=== PATIENT | female | born 1995 | race Caucasian/White ===

== ENCOUNTER → 2018-12-04 | Outpatient (CLI) | payer BC, OTHER ==
--- NOTE | 2018-12-04 12:22 | EST ---
EXERCISE STRESS DATE OF SERVICE: 12/04/2018 AGE: 23 SEX: Female HT: 5'3" WT: 168 pounds PROTOCOL: Ryan STAGE: III DURATION OF EXERCISE: 10 minutes 27 seconds HEART RATE REST: 100 BLOOD PRESSURE REST: 130/89 MAXIMUM HEART RATE ACHIEVED: 200 MAXIMUM BLOOD PRESSURE: 176/81 85% MPHR: 169 100% MPHR: 199 METS: 12.1 INDICATIONS: Chest pain. CLINICAL INFORMATION: Baseline rhythm is sinus mechanism, rate of 100, normal axis, intervals, normal electrocardiogram. Baseline blood pressure 130/89 mmHg. Patient exercised on Ryan protocol for 10 minutes 27 seconds reaching peak rate 200 beats per minute which is equal to 100% maximum predicted heart rate. Peak blood pressure 176/81 mmHg. Test was terminated secondary to fatigue. There was no chest pain. Electrocardiograph monitoring revealed no evidence of diagnostic ischemic ST deviation. No arrhythmia was noted. CONCLUSION: 1. Average exercise tolerance with no arrhythmia. 2. Normal stress test with no evidence of stress induced ischemia. MMODL / IJN: [id number] /
== END | disposition home or self-care (01) ==
LOC: RADNMMAIN 10:38
PROVIDERS: ATTEND Family Medicine
DX: R07.9 Chest pain, unspecified (principal)
CPT/HCPCS: 93017

== ENCOUNTER 2020-07-02 22:19 | Emergency (ER) | payer BC, OTHER ==
--- NOTE | 2020-07-02 22:51 | ED ---
Female Urogenital HPI - General Chief complaint: Vaginal Bleeding Stated complaint: Vaginal Bleeding 8 weeks preg Time Seen by Provider: 07/02/20 22:43 Source: patient, RN notes reviewed Mode of arrival: ambulatory Limitations: no limitations - History of Present Illness Initial comments: Patient is a 25-year-old female who states she is approximately 8 weeks . She noted that she woke up around 10 PM this evening to get a peripheral work when she noticed that she was having some bleeding and noticed blood in the toilet and on wiping. She feels it was a moderate amount of blood so she decided come emergency room to get evaluated. She denied any abdominal cramping pain prior to or during the bleeding episode. She states she has not been to see her [facility] yet as she is scheduled to go on the fifth. She was in no apparent distress or pain while sitting up in bed during the exam interview. She denied any chest pain shortness of breath headache vomiting diarrhea constipation fever fatigue chills vaginal discharge or follow odor. - Related Data Allergies Allergy/AdvReac Type Severity Reaction Status Date / Time No Known Allergies Allergy Verified 07/02/20 22:24 Review of Systems ROS Statement: Those systems with pertinent positive or pertinent negative responses have been documented in the HPI. ROS Other: All systems not noted in ROS Statement are negative. Past Medical History Past Medical History: No Reported History History of Any Multi-Drug Resistant Organisms: None Reported Past Surgical History: No Surgical Hx Reported Past Psychological History: No Psychological Hx Reported Smoking Status: Never smoker Past Alcohol Use History: None Reported Past Drug Use History: None Reported General Exam Limitations: no limitations General appearance: alert, in no apparent distress Head exam: Present: atraumatic, normocephalic, normal inspection Eye exam: Present: normal appearance, PERRL, EOMI. Absent: scleral icterus, conjunctival injection, periorbital swelling Neck exam: Present: normal inspection. Absent: tenderness, meningismus, lymphadenopathy Respiratory exam: Present: normal lung sounds bilaterally. Absent: respiratory distress, wheezes, rales, rhonchi, stridor Cardiovascular Exam: Present: regular rate, normal rhythm, normal heart sounds. Absent: systolic murmur, diastolic murmur, rubs, gallop, clicks GI/Abdominal exam: Present: soft, normal bowel sounds. Absent: distended, t enderness, guarding, rebound, rigid Back exam: Present: normal inspection Neurological exam: Present: alert, oriented X3, CN II-XII intact Psychiatric exam: Present: normal affect, normal mood Skin exam: Present: warm, dry, intact, normal color. Absent: rash Course Vital Signs 07/02/20 22:20 Temperature 97.6 F Pulse Rate 123 H Respiratory 20 Rate Blood Pressure 156/86 O2 Sat by Pulse 100 Oximetry Medical Decision Making - Medical Decision Making 25-year-old female approximately 8 weeks with vaginal bleeding. Labs, transvaginal ultrasound ordered. HCG 108,731 ultrasound shows 8 week 3 day gestation with minimal subcoracoid fluid, possible minimal hemorrhage. Patient is A positive. Case discussed with giancarlo Baker with follow-up to [facility]. - Lab Data Lab Results 07/02/20 07/02/20 07/02/20 Range/Units 23:10 23:10 23:39 HCG, Qual Detected HCG, Quant 414875.0 mIU/mL Urine HCG, Qual Detected (Not Detectd) - Radiology Data Radiology results: report reviewed, image reviewed ultrasound: Ultrasound gestational age is 8 weeks and 3 days tiny subchorionic fluid collection could be minimal hemorrhage. Disposition Clinical Impression: Dysfunctional uterine bleeding, Threatened Disposition: HOME SELF-CARE Condition: Stable Instructions (If sedation given, give patient instructions): Dysmenorrhea (ED) Additional Instructions: Please return to the Emergency Department if symptoms worsen or any other concerns. Follow-up with [facility] as planned. Take it easy over the next several days. If increase in bleeding or abdominal pain occurs please return to emergency room. Is patient prescribed a controlled substance at d/c from ED?: No Referrals: Devon Lancaster DO [Primary Care Provider] - 1-2 days Time of Disposition: 01:52
--- NOTE | 2020-07-02 23:51 | US ---
EXAMINATION TYPE: Transabdominal DATE OF EXAM: 07/02/2020 11:40 PM COMPARISON: NONE CLINICAL HISTORY: Vaginal bleeding, 8 weeks .. EXAM PERFORMED: Transabdominal (TA) EXAM MEASUREMENTS: GESTATIONAL AGE / DATING Physician Established: Not yet established Dates by LMP: (9 weeks/6 days) EDC: 01-29-21 Dates by First Scan: No previous this is first Dates by Current Scan for: ( 8 weeks/3 days) EDC: 02-08-21 MATERNAL ANATOMY Uterus: 9.4 x 6.0 x 7.0cm Right Ovary: 2.5x 1.9 x 2.0cm Left Ovary: 2.5 x 1.3 x 1.3cm Post CDS / Adnexa: wnl Presence of free fluid: no Subchorionic bleed measuring 1.0 x 0.5 x 0.9cm GESTATION / SURVEY CRL: 1.9 (8 weeks/3 days) Yolk Sac (normal less than 6mm): 2mm Heart Rate: 178 bpm Rhythm: Normal IUP: Viable IUP Date of LMP: 04-24-20 Beta HcG (if available): Not available at this time IMPRESSION: The ultrasound gestational age is 8 weeks and 3 days. Tiny subchorionic fluid collection could be min imal hemorrhage..
[2020-07-03 02:12] VITALS: BP 112/79; PULSE 110; RESP 18; TEMP 97.5
== END 2020-07-03 02:07 | disposition home or self-care (01) ==
LOC: EC 22:19
DX: O20.0 Threatened abortion (principal); Z3A.08 8 weeks gestation of pregnancy
CPT/HCPCS: 36415; 76801; 81025; 84702; 84703; 86900; 86901; 99284

== ENCOUNTER → 2021-07-09 | Outpatient (CLI) | payer BC, OTHER ==
--- NOTE | 2021-07-09 14:20 | XR ---
EXAMINATION TYPE: XR Hip LT and AP Pelvis DATE OF EXAM: 07/09/2021 COMPARISON: NONE HISTORY: Pain TECHNIQUE: A single AP view of the pelvis is obtained. Two views of the left hip are obtained. FINDINGS: There is sclerosis involving the left SI joint. Joint space of the hip preserved. Osseous structures intact. No acute fracture. Calcifications in the pelvis are nonspecific. Could be vascular . There is mild sclerosis of the right SI joint. No erosive changes. IMPRESSION: 1. Findings are suggestive of symmetric bilateral sacroiliitis. 2. Nonspecific left hemipelvic calcifications. If concern for ureteral stone correlate with noncontra st CT as clinically warranted.
== END | disposition home or self-care (01) ==
LOC: RADXRMAIN 13:56
PROVIDERS: ATTEND Family Medicine
DX: M25.552 Pain in left hip (principal); M89.8X8 Other specified disorders of bone, other site
CPT/HCPCS: 73502

== ENCOUNTER 2024-03-19 09:39 | Emergency (ER) | payer BC, OTHER ==
[2024-03-19 09:46] VITALS: RESP 18; TEMP 97.9
--- NOTE | 2024-03-19 10:08 | ED ---
Abdominal Pain HPI - General Chief Complaint: Abdominal Pain Stated Complaint: Blood in stool Time Seen by Provider: 03/19/24 09:47 Source: patient, RN notes reviewed Mode of arrival: ambulatory Limitations: no limitations - History of Present Illness Initial Comments: This is a 28-year-old female who presents to the emergency department for abdominal pain and blood in her stool and vomit. States that around 5 AM she woke up with generalized abdominal pain and felt constipated. However, she ended up having several bouts of diarrhea. States that the diarrhea contained streaks of bright red blood in it. She then began to vomit, and states that th is also contained streaks of bright red blood. Denies any history of similar symptoms in the past. States that she does feel somewhat dizzy. She is not currently nauseous, states that it is hitting her in waves. MD Complaint: abdominal pain - Related Data Previous Rx's Medication Instructions Recorded Dicyclomine [Bentyl] 20 mg PO QID PRN #30 tablet 03/19/24 Ondansetron Odt [Zofran Odt] 4 mg PO Q8HR PRN #20 tab 03/19/24 Pantoprazole Sodium [Protonix] 40 mg PO DAILY 14 Days #14 tab 03/19/24 Allergies Allergy/AdvReac Type Severity Reaction Status Date / Time No Known Allergies Allergy Verified 03/19/24 11:19 Review of Systems ROS Statement: Those systems with pertinent positive or pertinent negative responses have been documented in the HPI. ROS Other: All systems not noted in ROS Statement are negative. Past Medical History Past Medical History: Hypertension Additional Past Medical History / Comment(s): GDM-insulin controlled History of Any Multi-Drug Resistant Organisms: None Reported Past Surgical History: Appendectomy, Breast Surgery Additional Past Surgical History / Comment(s): D&C, [place] teeth. Lumpectomy 2018 Past Psychological History: No Psychological Hx Reported Smoking Status: Never smoker Past Alcohol Use History: Occasional Past Drug Use History: None Reported - Past Family History Mother Family Medical History: Myocardial Infarction (MD) General Exam Limitations: no limitations General appearance: alert, in no apparent distress Head exam: Present: atraumatic, normocephalic, normal inspection Respiratory exam: Present: normal lung sounds bilaterally. Absent: respiratory distress, wheezes, rales, rhonchi, stridor Cardiovascular Exam: Present: regular rate, normal rhythm, normal heart sounds. Absent: systolic murmur, diastolic murmur, rubs, gallop, clicks GI/Abdominal exam: Present: soft, tenderness (diffuse), normal bowel sounds. Absent: distended Neurological exam: Present: alert, oriented X3, CN II-XII intact Psychiatric exam: Present: normal affect, normal mood Skin exam: Present: warm, dry, intact, normal color. Absent: rash Course Vital Signs 03/19/24 03/19/24 09:42 11:57 Temperature 97.9 F Pulse Rate 85 74 Respiratory 18 18 Rate Blood Pressure 132/88 122/75 O2 Sat by Pulse 100 96 Oximetry Medical Decision Making - Medical Decision Making This is a 28-year-old female who presents to the emergency department for abdominal pain. Was pt. sent in by a medical professional or institution? @ -No Did you speak to anyone other than the patient for history? @ -No Did you review nursing and triage notes? @ -Yes, and I agree, it is accurate with regards to the patient's symptoms. Were old charts reviewed? @ -No Differential Diagnosis? @ -Differential Abdominal Pain Women: Appendicitis, Cholecystitis, diverticulosis, ischemic bowel, pancreatitis, hepatitis, UTI, gastroenteritis, AAA, incarcerated hernia, bowel obstruction, constipation, inflammatory bowel, hepatitis, peptic ulcer disease, splenic infarction, perforated viscus, vulvitis, ovarian torsion, PID, kidney stone, placenta abruption, this is not meant to be an all-inclusive list EKG interpreted by me (3pts min.)? @ -Not obtained X-rays interpreted by me (1pt min.)? @ -KUB x-ray obtained. My interpretation identifies no dilation of the small bowel loops. CT interpreted by me (1pt min.)? @ -Not obtained U/S interpreted by me (1pt. min.)? @ -Not obtained What testing was considered but not performed? (CT, X-rays, U/S, labs)? Why? @ -None What meds were considered but not given? Why? @ -None Did you discuss the management of the patient with other professionals? @ -No Did you reconcile home meds? @ -No Was smoking cessation discussed for >3mins.? @ -No Was critical care preformed (if so, how long)? @ -No Were there social determinants of health that impacted care today? How? (Homelessness, low income, unemployed, alcoholism, drug addiction, transportation, low edu. Level, literacy, decrease access to med. care, half-way, rehab)? @ -No Was there de-escalation of care discussed even if they declined? (Discuss DNR or withdrawal of care, Hospice)? @ -No What co-morbidities impacted this encounter? (DM, HTN, Smoking, COPD, CAD, Cancer, CVA, Hep., AIDS, mental health diagnosis, sleep apnea, morbid obesity)? @ -None Was patient admitted / discharged? @ -Discharged. Lab work demonstrates mild leukocytosis with a white blood cell count of 10.7. Lab work otherwise unremarkable. Urinalysis negative for signs of infection. KUB x-ray obtained revealing a single small air-fluid level on the right side of the abdomen that is nonspecific. It could be transient or represent a mild regional ileus or enteritis. Patient had mild generalized discomfort on exam, she did not appear to be in severe distress. She was treat ed with IV fluids, Zofran, pantoprazole, and Bentyl. She essentially had resolution of symptoms afterwards. She was tolerating oral intake and did not exhibit any additional episodes of emesis or bloody bowel movements while in the emergency department. Prescriptions for Bentyl, Protonix, and Zofran provided with dosing instructions reviewed. Advised follow-up with her PCP for reevaluation. Patient discharged home in stable condition. Case discussed with ED attending Dr. Humphreys. Return precautions reviewed in depth, the patient is instructed to return to the emergency department with any new, worsening, or concerning symptoms. Patient verbalized understanding. Undiagnosed new problem with uncertain prognosis? @ -None Drug Therapy requiring intensive monitoring for toxicity (Heparin, Nitro, Insulin, Cardizem)? @ -None Were any procedures done? @ -None Diagnosis/symptom? @ -Abdominal pain, enteritis, hematemesis, rectal bleeding Acute, or Chronic, or Acute on Chronic? @ -Acute Uncomplicated (without systemic symptoms) or Complicated (systemic symptoms)? @ -Uncomplicated Side effects of treatment? @ -None Exacerbation, Progression, or Severe Exacerbation] @ -Not applicable Poses a threat to life or bodily function? @ -No - Lab Data Result diagrams: 03/19/24 10:27 03/19/24 10:27 Lab Results 0103/19/24 03/19/24 Range/Units 10:27 10:27 10:27 WBC 10.7 H (3.8-10.6) k/uL RBC 4.74 (3.80-5.40) m/uL Hgb 13.6 (11.4-16.0) gm/dL Hct 40.8 (34.0-46.0) % MCV 86.1 (80.0-100.0) fL MCH 28.7 (25.0-35.0) pg MCHC 33.4 (31.0-37.0) g/dL RDW 12.9 (11.5-15.5) % Plt Count 303 (150-450) k/uL MPV 7.2 Neutrophils % 85 % Lymphocytes % 10 % Monocytes % 4 % Eosinophils % 1 % Basophils % 0 % Neutrophils # 9.1 H (1.3-7.7) k/uL Lymphocytes # 1.0 (1.0-4.8) k/uL Monocytes # 0.5 (0-1.0) k/uL Eosinophils # 0.1 (0-0.7) k/uL Basophils # 0.0 (0-0.2) k/uL Sodium 140 (137-145) mmol/L Potassium 4.5 (3.5-5.1) mmol/L Chloride 105 (98-107) mmol/L Carbon Dioxide 23 (22-30) mmol/L Anion Gap 12 mmol/L BUN 16 (7-17) mg/dL Creatinine 0.59 (0.52-1.04) mg/dL Est GFR (CKD-EPI)AfAm >90 (>60 ml/min/1.73 sqM) Est GFR (CKD-EPI)NonAf >90 (>60 ml/min/1.73 sqM) Glucose 108 H (74-99) mg/dL Plasma Lactic Acid [place] 1.5 (0.7-2.0) mmol/L Calcium 10.4 H (8.4-10.2) mg/dL Total Bilirubin 0.3 (0.2-1.3) mg/dL AST 24 (14-36) U/L ALT 20 (4-34) U/L Alkaline Phosphatase 65 (38-126) U/L Total Protein 7.9 (6.3-8.2) g/dL Albumin 4.9 (3.5-5.0) g/dL Amylase 60 (30-110) U/L Lipase 77 (23-300) U/L Urine Color Urine Appearance (Clear) Urine pH (5.0-8.0) Ur Specific [place] (1.001-1.035) Urine Protein (Negative) Urine Glucose (UA) (Negative) Urine Ketones (Negative) Urine Blood (Negative) Urine Nitrite (Negative) Urine Bilirubin (Negative) Urine Urobilinogen (<2.0) mg/dL Ur Leukocyte Esterase (Negative) Urine RBC (0-5) /hpf Urine WBC (0-5) /hpf Ur Squamous Epith Cells (0-4) /hpf Urine Mucus (None) /hpf Urine HCG, Qual (Not Detectd) 03/19/24 03/19/24 Range/Units 11:11 11:11 WBC (3.8-10.6) k/uL RBC (3.80-5.40) m/uL Hgb (11.4-16.0) gm/dL Hct (34.0-46.0) % MCV (80.0-100.0) fL MCH (25.0-35.0) pg MCHC (31.0-37.0) g/dL RDW (11.5-15.5) % Plt Count (150-450) k/uL MPV Neutrophils % % Lymphocytes % % Monocytes % % Eosinophils % % Basophils % % Neutrophils # (1.3-7.7) k/uL Lymphocytes # (1.0-4.8) k/uL Monocytes # (0-1.0) k/uL Eosinophils # (0-0.7) k/uL Basophils # (0-0.2) k/uL Sodium (137-145) mmol/L Potassium (3.5-5.1) mmol/L Chloride (98-107) mmol/L Carbon Dioxide (22-30) mmol/L Anion Gap mmol/L BUN (7-17) mg/dL Creatinine (0.52-1.04) mg/dL Est GFR (CKD-EPI)AfAm (>60 ml/min/1.73 sqM) Est GFR (CKD-EPI)NonAf (>60 ml/min/1.73 sqM) Glucose (74-99) mg/dL Plasma Lactic Acid [place] (0.7-2.0) mmol/L Calcium (8.4-10.2) mg/dL Total Bilirubin (0.2-1.3) mg/dL AST (14-36) U/L ALT (4-34) U/L Alkaline Phosphatase (38-126) U/L Total Protein (6.3-8.2) g/dL Albumin (3.5-5.0) g/dL Amylase (30-110) U/L Lipase (23-300) U/L Urine Color Yellow Urine Appearance Clear (Clear) Urine pH 6.0 (5.0-8.0) Ur Specific [place] 1.025 (1.001-1.035) Urine Protein Trace H (Negative) Urine Glucose (UA) Negative (Negative) Urine Ketones Negative (Negative) Urine Blood Negative (Negative) Urine Nitrite Negative (Negative) Urine Bilirubin Negative (Negative) Urine Urobilinogen <2.0 (<2.0) mg/dL Ur Leukocyte Esterase Small H (Negative) Urine RBC 1 (0-5) /hpf Urine WBC 4 (0-5) /hpf Ur Squamous Epith Cells 4 (0-4) /hpf Urine Mucus Occasional H (None) /hpf Urine HCG, Qual Not Detected (Not Detectd) - Radiology Data Radiology results: report reviewed, image reviewed Disposition Clinical Impression: Abdominal pain, Hematemesis, Rectal bleeding, Enteritis Disposition: HOME SELF-CARE Instructions (If sedation given, give patient instructions): Rectal Bleeding (ED), Abdominal Pain (ED), Hematemesis (ED) Additional Instructions: Return to the emergency department with any new, worsening, or concerning symptoms. Begin taking the Protonix once daily. Try to take this 30 to 60 minutes before eating or taking other medication for the best effect. Take the Bentyl up to 4 times a day for abdominal pain and cramping. You can take the Zofran up to every 8 hours as needed for nausea and vomiting. Follow up with your primary care provider in 1-2 days. Prescriptions: Dicyclomine [Bentyl] 20 mg PO QID PRN #30 tablet PRN Reason: Gi Upset Pantoprazole Sodium [Protonix] 40 mg PO DAILY 14 Days #14 tab Ondansetron Odt [Zofran Odt] 4 mg PO Q8HR PRN #20 tab PRN Reason: Nausea And Vomiting Is patient prescribed a controlled substance at d/c from ED?: No Referrals: Devon Lancaster DO [Primary Care Provider] - 1-2 days Time of Disposition: 11:35
[2024-03-19] MEDS: SODIUM CHLORIDE 0.9% 1,000 ML IV STA (10:20)
[2024-03-19] MEDS: ONDANSETRON 4 MG/2 ML VIAL IVP STA (10:20)
[2024-03-19] MEDS: DICYCLOMINE 10 MG/ML 2 ML AMP IM STA (10:21)
[2024-03-19] MEDS: PANTOPRAZOLE 40 MG/10 ML VIAL IVP STA (10:21)
--- NOTE | 2024-03-19 10:26 | XR ---
EXAMINATION TYPE: XR KUB DATE OF EXAM: 03/19/2024 10:14 AM COMPARISON: None CLINICAL INDICATION: Female, 28 years old with history of abdominal pain, , FINDINGS: Lung bases are clear. No evidence for free intraperitoneal air. No dilated small bowel. Single small air-fluid level right side of the colon. No significant stool bu rden. Left-sided pelvic phlebolith. IMPRESSION: Nonspecific, nonobstructive bowel gas pattern. A single small air-fluid level right side of the abdom en is nonspecific. It could be transient or could represent a mild regional ileus or enteritis. [facility], Workstation: [email or web address], 03/19/2024 10:23 AM
[2024-03-19 10:37] LABS: Basophils % (A) 0 %; Eosinophils # (A) 0.1 k/uL (0-0.7); Eosinophils % (A) 1 %; HCT 40.8 % (34.0-46.0); HGB 13.6 gm/dL (11.4-16.0); Lymphocytes % (A) 10 %; MCH 28.7 pg (25.0-35.0); MCHC 33.4 g/dL (31.0-37.0); MCV 86.1 fL (80.0-100.0); Mean Platelet Volume 7.2; Monocytes # (A) 0.5 k/uL (0-1.0); Monocytes % (A) 4 %; Neutrophils # (A) 9.1 k/uL (1.3-7.7); Neutrophils % (A) 85 %; Platelet Count 303 k/uL (150-450); RBC 4.74 m/uL (3.80-5.40); RDW 12.9 % (11.5-15.5); WBC 10.7 k/uL (3.8-10.6)
[2024-03-19 10:56] LABS: ALT 20 U/L (4-34); African American GFR (CKD) >90 (>60 ml/min/1.73 sqM); Albumin 4.9 g/dL (3.5-5.0); Amylase 60 U/L (30-110); Anion Gap 12 mmol/L; Blood Urea Nitrogen 16 mg/dL (7-17); Calcium 10.4 mg/dL (8.4-10.2); Carbon Dioxide 23 mmol/L (22-30); Chloride 105 mmol/L (98-107); Glucose 108 mg/dL (74-99); Lipase 77 U/L (23-300); Non-African American GFR(CKD) >90 (>60 ml/min/1.73 sqM); Sodium 140 mmol/L (137-145); Total Bilirubin 0.3 mg/dL (0.2-1.3); Total Protein 7.9 g/dL (6.3-8.2)
[2024-03-19 10:58] LABS: AST 24 U/L (14-36); Alkaline Phosphatase 65 U/L (38-126); Potassium 4.5 mmol/L (3.5-5.1)
[2024-03-19 11:26] LABS: Appearance,Urine Clear (Clear); Bilirubin,Urine Negative (Negative); Blood,Urine Negative (Negative); Color,Urine Yellow; Glucose,Urine (UA) Negative (Negative); Ketones,Urine Negative (Negative); Leukocyte Esterase,Urine Small (Negative); Mucus,Urine Occasional /hpf; Nitrite,Urine Negative (Negative); Protein,Urine Trace (Negative); RBC,Urine 1 /hpf (0-5); Specific Gravity,Urine 1.025 (1.001-1.035); Squamous Epithelial Cell,Urine 4 /hpf (0-4); Urobilinogen,Urine <2.0 mg/dL (<2.0); WBC,Urine 4 /hpf (0-5)
[2024-03-19 11:59] VITALS: BP 122/75; PULSE 74
== END 2024-03-19 11:57 | disposition home or self-care (01) ==
LOC: EC 09:39
DX: K52.9 Noninfective gastroenteritis and colitis, unspecified (principal); K92.0 Hematemesis; K62.5 Hemorrhage of anus and rectum
CPT/HCPCS: 36415; 80053; 82150; 83605; 83690; 85025; 81001; 81025; 74018; 99284; 96374; 96375; 96361; 96372; J0500; J2405; J2470